=== PATIENT | male | born 1980 | race Caucasian/White ===

== ENCOUNTER 2025-07-23 09:18 | Emergency (ER) | payer SELFPAY ==
[2025-07-23 11:15] LABS: BASOPHILS ABSOLUTE AUTO 0.04 K/uL (0.00-0.20); BASOPHILS PERCENT AUTO 0.5 % (0.0-1.0); EOSINOPHILS ABSOLUTE AUTO 0.02 K/uL (0.00-0.45); EOSINOPHILS PERCENT AUTO 0.3 % (0.0-6.0); IMMATURE GRAN ABSOLUTE AUTO 0.01 K/uL (0.00-0.05); IMMATURE GRAN PERCENT AUTO 0.1 % (0.0-0.4); LYMPHOCYTES ABSOLUTE AUTO 0.62 K/uL (1.00-4.80); LYMPHOCYTES PERCENT AUTO 8.0 % (24.0-44.0); MEAN PLATELET VOLUME 9.6 fL (9.4-12.4); MONOCYTES ABSOLUTE AUTO 0.26 K/uL (0.00-0.80); MONOCYTES PERCENT AUTO 3.3 % (0.0-8.0); NEUTROPHILS ABSOLUTE AUTO 6.83 K/uL (1.80-7.70); NEUTROPHILS PERCENT AUTO 87.8 % (41.0-71.0); NRBC ABSOLUTE 0.00 K/uL (0.00-0.02); NRBC PERCENT 0.0 /100WBC (0.0-0.2); PLATELET COUNT,PLT 216 K/uL (150-400); RED BLOOD CELL COUNT 4.98 M/uL (4.52-5.90); WHITE BLOOD CELL COUNT,WBC 7.78 K/uL (3.9-11.3)
[2025-07-23] MEDS: methylPREDNISolone Sodium Succinate 125 MG/2 ML SDV IVPUSH ONE (11:18)
[2025-07-23] MEDS: Ketorolac 30 MG/ML SDV IVPUSH ONE (11:19)
[2025-07-23 12:05] LABS: A/G RATIO 1.2 (0.9-1.6); ALANINE AMINOTRANSFERASE,ALT 48 IU/L (14-63); ASPARTATE AMNIOTRANSFERASE,AST 22 IU/L (15-37); BILIRUBIN TOTAL 0.4 mg/dL (0.2-1.0); BLOOD UREA NITROGEN,BUN 21 mg/dL (7.0-18.0); CARBON DIOXIDE,CO2 26.4 mmol/L (21.0-32.0); CHLORIDE,CL 103 mmol/L (98-107); CREATININE 0.9 mg/dL (0.8-1.3); EST CRCL DRUG DOSING (CG) 117.36 mL/min; GLUCOSE RANDOM 117 mg/dL (74-106); POTASSIUM,K 4.0 mmol/L (3.5-5.1); PROTEIN TOTAL,TP 7.6 g/dL (6.4-8.2); SODIUM,NA 137 mmol/L (136-148)
[2025-07-23 12:06] LABS: ESTIMATED GFR 109 mL/min (>60)
[2025-07-23] MEDS: Iopamidol 755 MG/ML 500 ML Multipack Bottle IVPUSH STA (12:50)
== END 2025-07-23 13:49 | disposition home or self-care (01) ==
LOC: MW.ED 09:18
DX: S16.1XXA Strain of muscle, fascia and tendon at neck level, initial encounter (principal); Z75.3 Unavailability and inaccessibility of health-care facilities; Z59.82 Transportation insecurity; Z88.0 Allergy status to penicillin; X58.XXXA Exposure to other specified factors, initial encounter
CPT/HCPCS: 36415; 70498; 71045; 80053; 84484; 85025; 93005; 96374; 96375; 99284; A9270; J1885; J2919; J7030; Q9967; 93010